=== PATIENT | female | born 1930 | race Caucasian/White ===

== ENCOUNTER → 2016-09-11 | Outpatient (REF) | payer MEDICARE ==
[~2016-09-11] MED LIST: ATEN25TA; CIPR500T19; CIPRO; COLA100C2; ESTRACE; HYDR25TA6; K-TA10TA; PRIL40CA; SPIR25TA2; SYNT100T; VITA500T; ZOCO10TA; estrace
== END ==
LOC: M LAB REF 16:38
PROVIDERS: ATTEND Nurse Practitioner Women's Health
DX: R39.15 Urgency of urination (principal); R30.0 Dysuria

== ENCOUNTER → 2019-05-23 | Outpatient (REF) | payer MEDICARE | LOC: M LAB REF 16:46 | PROVIDERS: ATTEND Internal Medicine | DX: R41.3 Other amnesia (principal) ==